=== PATIENT | male | born 1990 | race Caucasian/White ===

== ENCOUNTER 2019-03-03 19:47 | Emergency (ER) | payer MEDICAID ==
[~2019-03-03] VITALS: Ht 185.4 cm; Wt 106.4 kg
[2019-03-03 19:49] VITALS: BP 136/83
--- NOTE | 2019-03-03 21:05 | NUR ---
STEPHEN CONTRERAS TO SEE PT . DURNING DISCUSSION AND PHYSCIAL ASSEMENT. PT WAS VERY NONCOROPORTATIVE. WHEN ASKED ABOUT HIS PAST MEDICAL HX HE DENIED ANY PAST EXISITING HX BUT STAED HE WAS TAKING "800 MG OF IBPROFIN HIS ENTIRE LIFE SINCE HE WAS 6 " WHEN ASKED WHY HE WAS TAKING THRE IBPROFIN PT BECAUSE VERY AGGIATED AND HOSTILE. STATED " GABO WHY I TAKE IT , YOU WILL HAVE TO ASK MY MOTHER " I AM HERE TO BE TOLD WHY THE BLOOD IS COMING OUT OF MY MOUTH , WHEN I COUGH IT GUSHES OUT, HAVE I LOST ALOT OF BLOOD ? " WHEN ASSESSING THE INSIDE OF THE PATIENT MOUTH THERE WAS NO VISUAL LACERATIONS ASIDE FROM A A DRY CRACK TOP LIP. WHEN STEPHEN CONTRERAS ASKED FOR MORE DETAILED DESCRIPTION OF HOW WHEN AND WHERE THIS BLEEEDING CAME FROM PT , AGAIN BEGAB HOSTILE . " FUCK THIS , FUCK THAT, ALL I WANT TO BE TOLD IS WHY I AM BLEEDING IN MY MOUTH , NO I DIDNT GO TO THE DENTIST ALL I KNOW IS AM AM BLEEDING FROM THE MOUTH " NO SIGNS OF BLEEDING NOTED PT IS NOT SPITTING UP BLOOD OR USING GAUZE IN HIS MOUTH DENIES HAVING CUT HIS MOUTH , BUT INSISTS THAT HIS MOUTH HAS BLOOD COMING FROM IT . WHEN STEPHEN CONTRERAS TRIED TO DEESCUALTE THE PATIENT AND REASSURE HIM WE ARE HERE TO HELP PT CONTINUED TO USE PROFANITY AND MANNORISISMS THAT WHERE HOSTILE . PT STOOD UP AND RIPPED HIS BP CUFF OFF HIS AM AND THREW IT ON THR FLOOR AND SAID HE WANTED TO LEAVE. "THIS IS A WASTE OF TIME "
--- NOTE | 2019-03-03 21:10 | NUR ---
PT5 VERY HOSTILE AND AGGRESSIVE WHEN QUESTIONED ABOUT HIS PAST MEDICAL HX WITH STEPHEN CONTRERAS. USING INAPPROPRIATE BODY LANGUGE AND " FUCK YOUS' PT WAS NOT ABLE TO REDIRECT HIS LANGUAGE AND CALM DOWN . STATED HE WAS GOING TO LEAVE AND WOULD RATHER BE SEEN AT [facility] " " PT WAS ESCORTED OFF UNIT BY HOME ENERGY INSPECTOR SECURITY CALLED AND ASSISTED REMOVING PT FROM ED WHO WAS YELLING PROFANITIES ALL THE WAY TO REGISTRATION .
--- NOTE | 2019-03-03 21:12 | NUR ---
PT ESCORTED OFF UNIT BY AUTOMATION TEST DEVELOPER. PT YELLING HE WALKED DOWN THE HALLWAY USING FUCK THIS FUVK THAT THE WHOLE WAY TO [facility] SECURITY CALLED TO ASSIST WITH ESCORT OFF UNIT RAFAEL LARA AWARE.
== END 2019-03-03 21:14 | disposition left against medical advice (07) ==
LOC: ER 19:49
DX: K08.89 Other specified disorders of teeth and supporting structures (principal)
CPT/HCPCS: 99281